=== PATIENT | female | born 1995 | race Two or more races ===

== ENCOUNTER 2019-04-12 22:02 | Emergency (ER) | payer OTHER ==
[~2019-04-12] VITALS: Ht 177.8 cm; Wt 108.9 kg
== END 2019-04-13 00:09 | disposition home or self-care (01) ==
LOC: ER 22:02
DX: J03.80 Acute tonsillitis due to other specified organisms (principal)

== ENCOUNTER 2020-11-22 10:45 | Outpatient (CLI) | payer OTHER | END 2020-11-22 10:55 | disposition home or self-care (01) | LOC: SONOGRAMA 10:45 → MAMO-SONO 14:00 | PROVIDERS: ATTEND Obstetrics & Gynecology | DX: N93.8 Other specified abnormal uterine and vaginal bleeding (principal); N83.291 Other ovarian cyst, right side ==

== ENCOUNTER 2020-11-27 07:20 | Day surgery (SDC) | payer OTHER | END 2020-11-27 14:00 | disposition home or self-care (01) | LOC: CIR.AMB 07:20 | PROVIDERS: ATTEND Obstetrics & Gynecology | DX: N95.0 Postmenopausal bleeding (principal); Z20.822 Contact with and (suspected) exposure to COVID-19 ==